=== PATIENT | female | born 1990 | race American Indian/Alaskan Native ===

== ENCOUNTER 2017-04-21 18:58 | Emergency (ER) | payer OTHER ==
[~2017-04-21] VITALS: Ht 177.8 cm; Wt 70.3 kg
[~2017-04-21 18:58] MED LIST: AMOX500 PO; CEPH500 PO; CIPR500 PO; HYDACE5 PO; PENVK500 PO; PHENA200 PO; RXHYDACE PO; SULTRIDS PO
[2017-04-21] MEDS ORDERED: CLARITIN10 MG PO (19:11)
[2017-04-21] MEDS ORDERED: TRAM50 PO (19:22)
[2017-04-21] MEDS ORDERED: Amoxicillin500 MG PO (19:22)
== END 2017-04-21 19:40 | disposition home or self-care (01) ==
LOC: ER 18:58
DX: K02.9 Dental caries, unspecified (principal); F17.200 Nicotine dependence, unspecified, uncomplicated; Z98.51 Tubal ligation status; Z88.6 Allergy status to analgesic agent; Z91.09 Other allergy status, other than to drugs and biological substances; Z79.899 Other long term (current) drug therapy; Z79.2 Long term (current) use of antibiotics
CPT/HCPCS: 99283

== ENCOUNTER 2020-03-13 14:20 | Emergency (ER) | payer OTHER ==
[~2020-03-13] VITALS: Ht 177.8 cm; Wt 63.5 kg
[~2020-03-13 14:20] MED LIST changes: +Amoxicillin500 MG PO; +CLARITIN10 MG PO; +TRAM50 PO
[2020-03-13 15:25] LABS: BASOPHILS ABSOLUTE AUTO 0.08 K/mm3 (0.00-0.23); BASOPHILS PERCENT AUTO 1 % (0-2); EOSINOPHILS ABSOLUTE AUTO 1.47 K/mm3 (0.00-0.68); EOSINOPHILS PERCENT AUTO 9 % (0-6); Hematocrit 47.3 % (33.0-51.0); Hemoglobin 16.3 g/dL (11.5-16.0); IMMATURE GRAN ABSOLUTE AUTO 0.06 K/mm3 (0.00-0.10); IMMATURE GRAN PERCENT AUTO 0 % (0-1); LYMPHOCYTES ABSOLUTE AUTO 2.85 K/mm3 (0.84-5.20); LYMPHOCYTES PERCENT AUTO 18 % (21-46); MONOCYTES ABSOLUTE AUTO 1.17 K/mm3 (0.16-1.47); MONOCYTES PERCENT AUTO 7 % (4-13); Mean Corpuscular HGB 31.2 pg (26.0-34.0); Mean Corpuscular HGB Conc 34.5 g/dL (31.5-36.5); Mean Corpuscular Volume 91 fL (80-100); Mean Platelet Volume 9.1 fL (9.1-12.4); NEUTROPHILS ABSOLUTE AUTO 10.55 K/mm3 (1.96-9.15); NEUTROPHILS PERCENT AUTO 65 % (41-73); Platelet Count 472 K/mm3 (150-400); RDW Coefficient Variation 12.2 % (11.7-14.2); RDW Standard Deviation 40.3 fL (35.1-46.3); Red Blood Cell Count 5.22 M/mm3 (3.80-5.20); White Blood Cell Count 16.18 K/mm3 (4.00-11.30)
[2020-03-13 15:45] LABS: Alanine Aminotransfer (ALT/SGP 19 U/L (12-78); Albumin/Globulin Ratio 0.9 (0.8-1.8); Alk Phos 95 U/L (50-136); Anion Gap 8 mmol/L (6-16); Aspartate Aminotrans (AST/SGOT 17 U/L (12-37); Bilirubin, Total 0.7 mg/dL (0.1-1.0); Blood Urea Nitrogen 13 mg/dL (8-24); CO2, Blood 24 mmol/L (21-32); Calcium, Blood 9.3 mg/dL (8.5-10.1); Chloride, Blood 105 mmol/L (98-108); Creatinine, Blood 0.65 mg/dL (0.40-1.00); Globulin, Blood 4.5 g/dL (2.2-4.0); Glomerular Filtration Rate >60 (60-); Glucose, Blood 106 mg/dL (70-99); Potassium, Blood 3.8 mmol/L (3.5-5.5); Sodium, Blood 137 mmol/L (136-145); Total Protein, Blood 8.5 g/dL (6.4-8.2); Troponin I <0.015 ng/mL (0.000-0.040)
[2020-03-13 18:12] LABS: Influenza A, PCR Negative (NEGATIVE); Influenza B, PCR Negative (NEGATIVE); Resp Syncytial Virus, PCR Negative (NEGATIVE); SARS-Cov-2 (COVID-19) PCR, MMC Positive (NEGATIVE)
== END 2020-03-13 19:42 | disposition home or self-care (01) ==
LOC: ER 14:20
PROVIDERS: Physician Assistant
DX: U07.1 COVID-19 (principal); R06.02 Shortness of breath; R05 Cough; F17.210 Nicotine dependence, cigarettes, uncomplicated; Z88.6 Allergy status to analgesic agent; Z88.8 Allergy status to other drugs, medicaments and biological substances
CPT/HCPCS: 0241U; 36415; 71045; 80053; 81025; 84484; 85025; 93005; 93010; 94640; 96374; 99284-25; A9270; J2930

== ENCOUNTER 2020-06-28 09:04 | Emergency (ER) | payer OTHER ==
[~2020-06-28] VITALS: Ht 177.8 cm; Wt 60.3 kg
== END 2020-06-28 11:27 | disposition home or self-care (01) ==
LOC: ER 09:04
DX: S01.81XA Laceration without foreign body of other part of head, initial encounter (principal); F17.210 Nicotine dependence, cigarettes, uncomplicated; Z88.6 Allergy status to analgesic agent; Z91.09 Other allergy status, other than to drugs and biological substances; Y04.2XXA Assault by strike against or bumped into by another person, initial encounter
CPT/HCPCS: 12013; 99284

== ENCOUNTER 2022-10-11 11:19 | Inpatient (IN) | payer OTHER ==
[~2022-10-11] VITALS: Ht 177.8 cm; Wt 72.3 kg
[2022-10-11] VITALS (19 sets, daily range): BP systolic 103–171; BP diastolic 74–161
[2022-10-11] MEDS ORDERED: ALBU2.5V5 INH (11:40)
[2022-10-11 11:45] LABS: Base Excess Venous -6.4 mmol/L; PCO2 Venous 51.2 mmHg (38-42)
[2022-10-11 11:46] LABS: pH Blood Venous 7.23 (7.34-7.37)
[2022-10-11 12:07] LABS: Anion Gap 5 mmol/L (6-16); Beta HCG, Quantitative, Serum <1 mIU/mL (0-3); Blood Urea Nitrogen 10 mg/dL (8-24); Bun/Creatinine Ratio 15.8 (12.0-20.0); CO2, Blood 22 mmol/L (21-32); Calcium, Blood 9.2 mg/dL (8.5-10.1); Chloride, Blood 111 mmol/L (98-108); Creatinine, Blood 0.63 mg/dL (0.40-1.00); Glomerular Filtration Rate 119 (60-); Glucose, Blood 226 mg/dL (70-99); Magnesium, Blood 2.3 mg/dL (1.6-2.4); Phosphorus, Blood 4.1 mg/dL (2.5-4.9); Sodium, Blood 138 mmol/L (136-145); Thyroid Stimulating Hormone 0.814 uIU/mL (0.360-4.800)
[2022-10-11 12:16] LABS: Hematocrit 44.1 % (33.0-51.0); Hemoglobin 15.2 g/dL (11.5-16.0); Mean Corpuscular HGB 30.7 pg (26.0-34.0); Mean Corpuscular HGB Conc 34.5 g/dL (31.5-36.5); Mean Corpuscular Volume 89 fL (80-100); Mean Platelet Volume 10.1 fL (9.1-12.4); Platelet Count 445 K/mm3 (150-400); RDW Coefficient Variation 13.3 % (11.7-14.2); RDW Standard Deviation 43.6 fL (35.1-46.3); Red Blood Cell Count 4.95 M/mm3 (3.80-5.20); White Blood Cell Count 18.07 K/mm3 (4.00-11.30)
[2022-10-11 12:46] LABS: BASOPHILS PERCENT MAN 0 % (0-2); EOSINOPHILS ABSOLUTE MAN 5.24 K/mm3 (0.00-0.68); EOSINOPHILS PERCENT MAN 29 % (0-6); LYMPHOCYTES ABSOLUTE MAN 2.71 K/mm3 (0.84-5.20); LYMPHOCYTES PERCENT MAN 15 % (21-46); MONOCYTES ABSOLUTE MAN 1.44 K/mm3 (0.16-1.47); MONOCYTES PERCENT MAN 8 % (4-13); NEUTROPHILS ABSOLUTE MAN 8.67 K/mm3 (1.96-9.15); SEG NEUTROPHILS PERCENT MAN 48 % (41-73); TOTAL CELLS COUNTED 100
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
--- NOTE | 2022-10-11 17:51 | NUR ---
call to this rn called md villagomez to inform md of the patients respiration rate averageing 35-40 and trachea retractions. no new orders at this time.
[2022-10-11 18:15] LABS: PCO2 Arterial 38.7 mmHg (35-45); PO2 Arterial 95.2 mmHg (80-100); pH Blood Arterial 7.36 (7.35-7.45)
--- NOTE | 2022-10-11 18:33 | NUR ---
SHIFT SUMMARY patient started on mag drip, see orders. respiratory in and started an hour long breathing treatment, see orders. no acute changes. respiration 30-37 range. plan of care up to date
--- NOTE | 2022-10-11 19:39 | NUR ---
[place] and Transfer Summary: [place] of care patietn RR increased from upper 20 low 30' to lower 40's increased work of breathing, patient visibly tripoding, with increasing heartrate from 110's to 130's. Reporting RN call to Provider, new orders and ICU transfer. Patient hastily assessed ins/exp wheeze completely throughout bilaterally, setting of 12/6 at 30%. Report given to RHEOLOGIST Christin Rose, helped settle the patient. No concerns from either myself or recieving RN.
--- NOTE | 2022-10-11 22:55 | NUR ---
ARRIVAL TO ICU PT ARRIVED TO ICU 13 FROM PCU 13 AT 1922 DUE TO RESPIRATORY DISTRESS. SHE IS TACHYPNIC WITH RR 40'S, USING ACCESSORY MUSCLES, AND TRIPODING; LOUD WHEEZES HEARD T/O ALL FEILDS; SHE IS ON BIPAP WITH SETTINGS 12/6, FIO2 30%; SHE IS ANXIOUS AND ONLY ABLE TO SAY A FEW WORDS AT A TIME. PRN ATIVAN GIVEN WITH MINIMAL RELIEF, CALL MADE TO HOSPITALIST WHO PROVIDED NEW ORDER FOR PRN FENTANYL AND CHANGED THE FREQUENTCY OF THE ATIVAN. AFTER GIVING FENTANYL SHE IS NOW TOLERATING THE BIPAP BETTER, IS LESS ANXIOUS, AND RR IN THE 20'S WHILE SHE IS SLEEPING. HR UP TO THE 140'S WHEN IN DISTRESS, NOW LOW 100'S. BP STABLE. AFEBRILE. PT S.O. DAVID AT BEDSIDE AND IS APPROPRIATE, HELPING PT STAY CALM, HE IS STAYING OVERNIGHT. SEE SHIFT ASSESSMENT FOR FULL ASSESSMENT.
[2022-10-12] VITALS (37 sets, daily range): BP systolic 61–142; BP diastolic 46–103
--- NOTE | 2022-10-12 02:53 | NUR ---
UPDATE PT STATES THAT SHE IS FEELING BETTER. AT 2300 PT WAS ABLE TO USE BSC WHILE WEARING BIPAP, RR STARTED TO CLIMB BUT AFTERWARDS SHE WAS ABLE TO COME BACK TO RR HIGH 20'S. TRIAL DONE OFF OF BIPAP TO RA AND HER SPO2 DROPPED TO 88%, SHE WAS THEN PLACED BACK ON BIPAP. CALL MADE TO RT REGARDING SWITCHING TO AIRVO, WHEEZING HAD IMPROVED. SHE WAS PLACED ON AIRVO 50L, FIO2 30%. RR MID 20'S 0142 AIRVO DECREASED TO 30L, FIO2 30%, D/T SPO2 100% 0203 SHE WAS PLACED ON HUMIDIFIED HNC 15L, SPO2 95-98% 0240 A DECREASE IN TO 10L HNC, SPO2 100%, RR MID- HIGH 20'S.
[2022-10-12 03:36] LABS: BASOPHILS ABSOLUTE AUTO 0.01 K/mm3 (0.00-0.23); BASOPHILS PERCENT AUTO 0 % (0-2); EOSINOPHILS ABSOLUTE AUTO 0.01 K/mm3 (0.00-0.68); EOSINOPHILS PERCENT AUTO 0 % (0-6); Hematocrit 39.5 % (33.0-51.0); Hemoglobin 13.9 g/dL (11.5-16.0); IMMATURE GRAN ABSOLUTE AUTO 0.07 K/mm3 (0.00-0.10); IMMATURE GRAN PERCENT AUTO 1 % (0-1); LYMPHOCYTES ABSOLUTE AUTO 0.84 K/mm3 (0.84-5.20); LYMPHOCYTES PERCENT AUTO 6 % (21-46); MONOCYTES ABSOLUTE AUTO 0.29 K/mm3 (0.16-1.47); MONOCYTES PERCENT AUTO 2 % (4-13); Mean Corpuscular HGB 30.2 pg (26.0-34.0); Mean Corpuscular HGB Conc 35.2 g/dL (31.5-36.5); Mean Corpuscular Volume 86 fL (80-100); Mean Platelet Volume 8.9 fL (9.1-12.4); NEUTROPHILS PERCENT AUTO 92 % (41-73); Platelet Count 445 K/mm3 (150-400); RDW Coefficient Variation 13.2 % (11.7-14.2); RDW Standard Deviation 41.2 fL (35.1-46.3); White Blood Cell Count 14.62 K/mm3 (4.00-11.30)
[2022-10-12 03:56] LABS: Albumin, Blood 3.6 g/dL (3.4-5.0); Bilirubin, Total 0.4 mg/dL (0.1-1.0); Bun/Creatinine Ratio 22.6 (12.0-20.0); Calcium, Blood 8.7 mg/dL (8.5-10.1); Creatinine, Blood 0.58 mg/dL (0.40-1.00); Globulin, Blood 3.7 g/dL (2.2-4.0); Magnesium, Blood 2.5 mg/dL (1.6-2.4); Total Protein, Blood 7.3 g/dL (6.4-8.2)
--- NOTE | 2022-10-12 06:39 | NUR ---
END OF SHIFT SUMMARY PT CONT TO IMPROVE, O2 REQUIREMENTS DOWN TO 7L HNC; WHEEZING HAS IMPROVED AND RR DOWN INTO THE LOW 20'S, NO C/O DYSPNEA. SHE WAS ABLE TO FALL ASLEEP AFTER 0300 LAB DRAW. SHE CONT TO BE A/O X4 AND IS ABLE TO SPEAK IN FULL SENTENCES NOW. AFEBRILE. HR 60'S NOW. BP STABLE. TOLERATING PO INTAKE OF WATER AND FRUIT WELL. PT S.O. AT BEDSIDE AND APPROPRIATE ALL NIGHT. SALINE LOCKED. WILL REPORT TO AM RN WHEN AVAILABLE.
--- NOTE | 2022-10-12 10:53 | NUR ---
SRINI IS QUIETLY RESTING, VSS.
--- NOTE | 2022-10-12 16:27 | NUR ---
PT AND S/O ARE QUIETLY SLEEPING IN A DARKENED ROOM.
--- NOTE | 2022-10-12 17:46 | NUR ---
SRINI HAS PROGRESSED FROM 7L HFNC TO 3L NC T/O THE DAY. SHE HAS RESPONDED WELL TO THE BREATHING TREATMENTS, ONLY REQUIRING ONE DOSE OF ATIVAN THIS SHIFT. SHE HAS BEEN ABLE TO BE INDEPENDENT IN HER ROOM, EATING AND DRINKING WITHOUT INCI- DENT. SHE IS TRANSFERRED TO U 19, REPORT GIVEN TO NEDRA Serrato RN.
--- NOTE | 2022-10-12 19:55 | NUR ---
ASSUMPTION OF CARE: A/O X4. CURRENLTY RECIEVING A BREATHING Tx, SPO2 89-91 ON RA, NO SIGNS OF INCREASED WOB MUCH IMPROVEMENT FROM YESTERDAY, PRN ATIVAN AND FENT AVAILABLE STILL WHICH WAS NEEDED THIS EVENING BEFORE START OF LINEN ATTENDANT. SPOUSE IN THE ROOM, NO SIGNS OF ACUTE CARDIAC DISTRESS. BESIDES SPO2 VSS. WILL CONTINUE TO MONITOR.
[2022-10-13 00:27] VITALS: BP 113/76
[2022-10-13 03:37] VITALS: BP 105/65
--- NOTE | 2022-10-13 03:47 | NUR ---
END OF SHIFT: ELIZABETH LECHUGA ON RA STILL WITH WOB INCREASED ONLY WHEN EXERTING HERSELF. PATIENT DENIES CHEST PAIN PRESSURE OR SOB AT REST. QT IMPROVING, WILL CONTINUE TO MONITOR. SPO2 STILL 89-93% ON RA. PATIENT HAS BEEN A/O X 4 ABLE TO MAKE NEEDS KNOWN. PATIENT COULD BENEFIT FROM SOME FORM OF ANXILYTIC AT HOME FOR THESE EXACERBATIONS. EDUCATED PATIENT ON POTENTIAL SIDE-EFFECTS WITH LONGER QT, PATIENT UNDERSTOOD NONE GIVEN THIS SHIFT.
[2022-10-13 04:10] LABS: BASOPHILS ABSOLUTE AUTO 0.03 K/mm3 (0.00-0.23); BASOPHILS PERCENT AUTO 0 % (0-2); EOSINOPHILS ABSOLUTE AUTO 0.01 K/mm3 (0.00-0.68); EOSINOPHILS PERCENT AUTO 0 % (0-6); Hematocrit 37.3 % (33.0-51.0); IMMATURE GRAN ABSOLUTE AUTO 0.19 K/mm3 (0.00-0.10); IMMATURE GRAN PERCENT AUTO 1 % (0-1); LYMPHOCYTES ABSOLUTE AUTO 1.03 K/mm3 (0.84-5.20); LYMPHOCYTES PERCENT AUTO 4 % (21-46); MONOCYTES ABSOLUTE AUTO 0.53 K/mm3 (0.16-1.47); MONOCYTES PERCENT AUTO 2 % (4-13); Mean Corpuscular HGB 30.7 pg (26.0-34.0); Mean Corpuscular HGB Conc 34.9 g/dL (31.5-36.5); Mean Corpuscular Volume 88 fL (80-100); Mean Platelet Volume 9.1 fL (9.1-12.4); NEUTROPHILS ABSOLUTE AUTO 24.55 K/mm3 (1.96-9.15); NEUTROPHILS PERCENT AUTO 93 % (41-73); Platelet Count 433 K/mm3 (150-400); RDW Coefficient Variation 13.5 % (11.7-14.2); RDW Standard Deviation 43.8 fL (35.1-46.3); Red Blood Cell Count 4.23 M/mm3 (3.80-5.20); White Blood Cell Count 26.34 K/mm3 (4.00-11.30)
[2022-10-13 04:32] LABS: Bun/Creatinine Ratio 32.2 (12.0-20.0); Calcium, Blood 8.8 mg/dL (8.5-10.1); Creatinine, Blood 0.59 mg/dL (0.40-1.00); Magnesium, Blood 2.2 mg/dL (1.6-2.4); Potassium, Blood 4.4 mmol/L (3.5-5.5)
[2022-10-13 09:12] VITALS: BP 123/76
[2022-10-13 11:53] VITALS: BP 108/71
[2022-10-13 16:32] VITALS: BP 111/66
--- NOTE | 2022-10-13 17:40 | NUR ---
PT HAS BEEN ASLEEP T/O THE DAY. PT DOES NOT ALWAYS USE CALL LIGHT TO MAKE NEEDS KNOWN, PT INSTEAD CALLS FAMILY FROM ROOM AND TELLS THEM OF HER NEEDS. SHE IS A/O X4. SHE ANSWERS QUESTIONS IN FULL SENTENCES. THIS EVENING PT REQUESTS ATIVAN STATING THAT SHE HAS "BEEN LAYING HERE WITHOUT ANY", PT WAS MEDCIATED 2 HOURS PREVIOUSLY WITH ATIVAN PT STS "THAT IV WENT BAD AND I DIDN'T GET ANY OF THE AFFECTS FROM IT AT ALL", SHE DOES NOT EXHIBIT ANY SIGNS OF RESPIRATORY DISTRESS BUT IS BECOMING AGITATED AT THIS TIME A VISITOR HAS ARRIVED TO THE ROOM. PT IS MEDICATED WITH ATIVAN PER HER REQUEST. VSS. SHE HAS BEEN PLACED ON 2L NASAL CANNULA WHEN SHE IS ASLEEP HER OXYGEN DROPS, WHILE AWAKE PT'S SPO2 SITS IN LOW 90s.
[2022-10-13 21:30] VITALS: BP 112/64
--- NOTE | 2022-10-13 23:23 | NUR ---
ASSUMPTION OF CARE: ONLY CHANGE FROM END OF PREVIOUS SHIFT, PATENT REQUIRING MORE ANXIETY MEDICATIONS, MONITORING QT, AND PATIENT PLACED ON 2L VIA NC TO ENSURE SPO2>92%. PATIENT ON 2 L AND 94%. NO INCREASED WOB, UNLESS ANXIETY PRESENT. DAUGHTER IN THE ROOM, RESTING COOPERATIVE AND PLEASANT WITH CARE. NO SIGNS OF ACTURE CARDIAC OR RESPIRATORY DISTRES. VSS. WILL CONTINUE TO MONITOR UNTIL SHIFT CHANGE.
[2022-10-14] VITALS: BP 100/62
[2022-10-14 00:15] VITALS: BP 100/62
[2022-10-14 04:32] LABS: BASOPHILS ABSOLUTE AUTO 0.02 K/mm3 (0.00-0.23); BASOPHILS PERCENT AUTO 0 % (0-2); EOSINOPHILS PERCENT AUTO 0 % (0-6); Hemoglobin 12.8 g/dL (11.5-16.0); IMMATURE GRAN ABSOLUTE AUTO 0.15 K/mm3 (0.00-0.10); IMMATURE GRAN PERCENT AUTO 1 % (0-1); LYMPHOCYTES ABSOLUTE AUTO 0.95 K/mm3 (0.84-5.20); LYMPHOCYTES PERCENT AUTO 5 % (21-46); MONOCYTES ABSOLUTE AUTO 0.41 K/mm3 (0.16-1.47); MONOCYTES PERCENT AUTO 2 % (4-13); Mean Corpuscular HGB Conc 33.7 g/dL (31.5-36.5); Mean Corpuscular Volume 89 fL (80-100); Mean Platelet Volume 9.3 fL (9.1-12.4); NEUTROPHILS ABSOLUTE AUTO 16.73 K/mm3 (1.96-9.15); NEUTROPHILS PERCENT AUTO 92 % (41-73); Platelet Count 419 K/mm3 (150-400); RDW Coefficient Variation 13.4 % (11.7-14.2); RDW Standard Deviation 43.8 fL (35.1-46.3); Red Blood Cell Count 4.27 M/mm3 (3.80-5.20); White Blood Cell Count 18.26 K/mm3 (4.00-11.30)
[2022-10-14 06:07] VITALS: BP 134/71
--- NOTE | 2022-10-14 06:29 | NUR ---
EOS: ONLY CHANGES FROM ASSUMPTION OF CARE ARE VSS. INCREASED ANXIETY WITH 1 TIME DOSE OF ATIVAN. NEW IV PLACED PIOTR, THE LAC LEAKING. DENIES CHEST PAIN PRESSURE OR SOB. DAUGHTER, AT BEDSIDE THORUGH THE NIGHT. SR 60'S SLEEPING WELL CURRENTLY. NO CONCERNS FROM THIS RN WOULD EXPECT TO DECRESAE O2 THROUGH THE DAY WITH POTENTIAL TO DISCHARGE, MAY NEED HOME O2 FOR 1-2L AND PREVIOUS PROVIDER ERQUESTING ATLEAST 1 DAY OF INHALER USE. PATIENT COOPERATIVE AND PLEASANT WITH CARE.
[2022-10-14 08:49] VITALS: BP 109/73
--- NOTE | 2022-10-14 11:12 | NUR ---
Upon receiving a referral for spiritual care, I visited the patient. PAtient tells me about the events that led up to her hospitalization and the gratitude she has for life. She also explains about the anxiety she has because the medical issues she has faced. She shares about her solid support system of friends and family and welcomes prayer. I gladly provide prayer and anxiety containment. Patient responded well and displays evidence of increased peace and voices appreciation for the visit.
[2022-10-14 12:44] VITALS: BP 114/76
[2022-10-14 16:04] VITALS: BP 109/69
[2022-10-14] MEDS ORDERED: Mucinex600 MG PO (17:53)
[2022-10-14] MEDS ORDERED: IPRAT-ALBUT 0.5-3 ML INH (17:54)
[2022-10-14] MEDS ORDERED: FLOVENT HFA12 GM INH (18:02)
[2022-10-14] MEDS ORDERED: PRED20 PO (18:03)
--- NOTE | 2022-10-14 18:46 | NUR ---
SHIFT SUMMARY/DISCHARGE: PT HAS BEEN A&Ox4 T/OUT THE DAY, COOPERATIVE W/CARE, ABLE TO MAKE NEEDS KNOWN. O2 SATS MAINTAINED >92% ON RA, HOME O2 EVAL COMPLETED PRIOR TO DISCHARGE. PT DENIES SOB OR CP, INDEPENDENT IN THE ROOM. ALL ASSESSMENTS FOR IGNITION RISK HAVE BEEN NEGATIVE. PT HAS BEEN CLEARED FOR DISCHARGE HOME. ALL IV ACCESS DC'd WNL. PT PROVIDED WITH DC PAPERWORK AND INSTRUCTIONS, V/U. PT DEPARTS UNIT W/OUT INCIDENT.
== END 2022-10-14 18:45 | disposition home or self-care (01) | DRG 189 ==
LOC: ER 11:19 → PCU 11:20 → ICUE 19:21 → PCU 10-12 16:53 → ICUE 10-12 16:53 → PCU 10-12 17:42
PROVIDERS: Emergency Medicine; Family Medicine; Nurse Practitioner Acute Care; ADMIT Hospitalist
PROC: 4A033R1 Measurement of Arterial Saturation, Peripheral, Percutaneous Approach (ICD-10-PCS; principal; 2022-10-11)
DX: J96.21 Acute and chronic respiratory failure with hypoxia (principal); J45.51 Severe persistent asthma with (acute) exacerbation; J96.22 Acute and chronic respiratory failure with hypercapnia; F15.10 Other stimulant abuse, uncomplicated; Z88.6 Allergy status to analgesic agent; Z88.8 Allergy status to other drugs, medicaments and biological substances; Z86.16 Personal history of COVID-19; Z98.890 Other specified postprocedural states; Z87.891 Personal history of nicotine dependence; Z98.51 Tubal ligation status; Z88.0 Allergy status to penicillin; Z79.899 Other long term (current) drug therapy
CPT/HCPCS: 36415; 36600; 71045; 80048; 80053; 82803; 83735; 84100; 84443; 84702; 85025; 87070; 87205; 94640; 94644; 94645; 94660; 94664; 94760; 94761; 94762; 96365; 96366; 96372; 96375; 96376; 99285-25; A9270; G0378; J1650; J2060; J2250; J2930; J3010; J3475

== ENCOUNTER 2024-05-14 11:08 | Emergency (ER) | payer OTHER ==
[~2024-05-14] VITALS: Ht 175.3 cm; Wt 81.7 kg
[~2024-05-14 11:08] MED LIST changes: +ALBU2.5V5 INH; +FLOVENT HFA12 GM INH; +IPRAT-ALBUT 0.5-3 ML INH; +Mucinex600 MG PO; +PRED20 PO
[2024-05-14 11:25] VITALS: BP 143/91
[2024-05-14] MEDS ORDERED: Diphth,Pertuss(Acell),Tet Vac 0.5 ML VIAL IM ONE (11:45)
== END 2024-05-14 12:08 ==
LOC: ER 11:08
DX: S81.811A Laceration without foreign body, right lower leg, initial encounter (principal); J45.909 Unspecified asthma, uncomplicated; W45.8XXA Other foreign body or object entering through skin, initial encounter; Z23 Encounter for immunization; Z87.891 Personal history of nicotine dependence; Z79.51 Long term (current) use of inhaled steroids; Z79.52 Long term (current) use of systemic steroids; Z79.899 Other long term (current) drug therapy; Z88.6 Allergy status to analgesic agent; Z88.0 Allergy status to penicillin; Z91.048 Other nonmedicinal substance allergy status
CPT/HCPCS: 12002; 90471; 90715; 99282-25

== ENCOUNTER 2024-07-04 13:42 | Emergency (ER) | payer OTHER ==
[~2024-07-04] VITALS: Ht 175.3 cm; Wt 81.7 kg
[2024-07-04] MEDS ORDERED: Ondansetron HCl 2 MG / ML 2ML Vial IV PRN (13:55)
[2024-07-04] MEDS ORDERED: Morphine Sulfate 4 MG/1 ML Injection IV ONE ×2 (14:05→16:15)
[2024-07-04 14:37] LABS: BASOPHILS ABSOLUTE AUTO 0.04 K/mm3 (0.00-0.23); BASOPHILS PERCENT AUTO 1 % (0-2); EOSINOPHILS PERCENT AUTO 5 % (0-6); Hematocrit 40.1 % (33.0-51.0); Hemoglobin 13.7 g/dL (11.5-16.0); IMMATURE GRAN ABSOLUTE AUTO 0.02 K/mm3 (0.00-0.10); IMMATURE GRAN PERCENT AUTO 0 % (0-1); LYMPHOCYTES ABSOLUTE AUTO 2.24 K/mm3 (0.84-5.20); LYMPHOCYTES PERCENT AUTO 27 % (21-46); MONOCYTES ABSOLUTE AUTO 0.71 K/mm3 (0.16-1.47); MONOCYTES PERCENT AUTO 9 % (4-13); Mean Corpuscular HGB 31.5 pg (26.0-34.0); Mean Corpuscular HGB Conc 34.2 g/dL (31.5-36.5); Mean Corpuscular Volume 92 fL (80-100); Mean Platelet Volume 9.8 fL (9.1-12.4); NEUTROPHILS ABSOLUTE AUTO 4.91 K/mm3 (1.96-9.15); NEUTROPHILS PERCENT AUTO 59 % (41-73); Platelet Count 411 K/mm3 (150-400); RDW Coefficient Variation 12.5 % (11.7-14.2); RDW Standard Deviation 42.5 fL (35.1-46.3); Red Blood Cell Count 4.35 M/mm3 (3.80-5.20); White Blood Cell Count 8.32 K/mm3 (4.00-11.30)
[2024-07-04 14:57] LABS: Albumin/Globulin Ratio 1.2 (0.8-1.8); Bilirubin, Total 0.8 mg/dL (0.1-1.0); Bun/Creatinine Ratio 18.2 (12.0-20.0); Calcium, Blood 8.9 mg/dL (8.5-10.1); Creatinine, Blood 0.55 mg/dL (0.40-1.00); Globulin, Blood 3.4 g/dL (2.2-4.0); Potassium, Blood 4.1 mmol/L (3.5-5.5); Total Protein, Blood 7.4 g/dL (6.4-8.2)
[2024-07-04] MEDS ORDERED: Lactated Ringer's 1,000 ML IV ONE (15:05)
[2024-07-04 16:02] LABS: Source, Urine Clean Catch
[2024-07-04 16:14] LABS: Appearance, Urine Clear (Clear); Bilirubin, Urine Neg (Neg); Blood, Urine 3+ (Neg); Glucose Qualitative, Urine Neg (Neg); Ketones, Urine Neg (Neg); Leukocyte Esterase, Urine Neg (Neg); Nitrite, Urine Neg (Neg); Protein, Urine Neg (Neg); Urobilinogen, Urine NORM (Normal)
[2024-07-04 16:45] LABS: Color, Urine Pale Yellow (P-Yellow)
[2024-07-04 16:48] LABS: Bacteria Mod /hpf; Red Blood Cells, Urine 0-2 /hpf (0-2); Squamous Epithelial Cells Many /hpf (Few); White Blood Cells, Urine 0-2 /hpf (0-5)
[2024-07-04 16:49] LABS: Amorphous Light (0-Heavy); Mucus Mod (0-Heavy)
[2024-07-04] MEDS ORDERED: Morphine Sulfat15 MG PO (17:00)
[2024-07-04 17:15] VITALS: BP 125/62
== END 2024-07-04 17:25 | disposition home or self-care (01) ==
LOC: ER 13:42
PROVIDERS: Student in an Organized Health Care Education/Training Program
DX: N83.209 Unspecified ovarian cyst, unspecified side (principal); K66.1 Hemoperitoneum; R10.2 Pelvic and perineal pain; J45.909 Unspecified asthma, uncomplicated; Z87.891 Personal history of nicotine dependence; Z88.6 Allergy status to analgesic agent; Z88.0 Allergy status to penicillin; Z88.8 Allergy status to other drugs, medicaments and biological substances; Z79.51 Long term (current) use of inhaled steroids; Z79.52 Long term (current) use of systemic steroids; Z79.899 Other long term (current) drug therapy
CPT/HCPCS: 74177; 80053; 81001; 83690; 84703; 85025; 87086; 96361; 96374-59; 96375; 99284-25; J2270; J2405; J7120; Q9967

== ENCOUNTER 2025-03-08 04:15 | Emergency (ER) | payer OTHER ==
[~2025-03-08] VITALS: Ht 175.3 cm; Wt 83.9 kg
[~2025-03-08 04:15] MED LIST changes: +Morphine Sulfat15 MG PO
[2025-03-08] MEDS ORDERED: Magnesium Sulf 2 GM/Water 50ML 50 ML IV ONE (04:45)
[2025-03-08] MEDS ORDERED: Albuterol 2.5 MG/3 ML VIAL INH SCH (04:45)
[2025-03-08] MEDS ORDERED: PRED20 PO (05:50)
[2025-03-08 07:30] VITALS: BP 127/63
== END 2025-03-08 07:31 | disposition home or self-care (01) ==
LOC: ER 04:15
DX: J45.901 Unspecified asthma with (acute) exacerbation (principal); F17.210 Nicotine dependence, cigarettes, uncomplicated
CPT/HCPCS: 93005; 93010; 96365; 96375; 99285-25; J2919; J3475